=== PATIENT | female | born 1955 | race Caucasian/White ===

== ENCOUNTER → 2020-12-28 | Outpatient (CLI) | payer MEDICARE, OTHER ==
[2019-09-08 11:40] VITALS: BP 113/68
[~2020-12-28] MED LIST: ALPR0.25 PO; ASCO500C PO; BUTA1CAP57 PO; CALC500T54 PO; DULO20CA PO; ESTR0.45 PO; FURO-69 PO; GLUC-11 PO; HYDR12.58 PO; HYDR25CA75 PO; LISI-130 PO; MULT-245 PO; PROG100C10 PO; TRAM50TA PO; ZOLP10TA PO
--- NOTE | 2020-12-28 09:52 | KCIC ---
EXAM: CT coronary artery calcium screening; radiologist over read. HISTORY: Anemia. TECHNIQUE: Computed tomographic images of the chest were obtained without contrast. Multiplanar refor matting was performed. *One or more of the following individualized dose reduction techniques were utilized for this examina tion: 1. Automated exposure control. 2. Adjustment of the mA and/or kV according to patient size. 3. Use of iterative reconstruction technique. COMPARISON: 09/02/2019. FINDINGS: The heart is normal in size. The thoracic aorta is normal in caliber. There is no lymphaden opathy. There are implanted breast prostheses with capsular calcification. There is no pneumothorax o r pleural effusion. There is no infiltrate. There is posterior dependent atelectasis. There is no juan r picious pulmonary nodule. There is no acute finding involving the upper abdomen or osseous structures . Coronary artery calcium score: 0. IMPRESSION: 1. Coronary artery calcium score of 0. 2. No significant incidental thoracic finding. Electronically signed by: Gayle Smith MD (12/28/2020 9:50 AM) [facility]
== END ==
LOC: KCIC CT 09:06
PROVIDERS: ATTEND Family Medicine
DX: E78.2 Mixed hyperlipidemia (principal); J98.11 Atelectasis; R92.1 Mammographic calcification found on diagnostic imaging of breast
CPT/HCPCS: 75571